=== PATIENT | male | born 1965 | race Caucasian/White ===

== ENCOUNTER 2019-05-07 08:29 | Outpatient (REF) | payer SELFPAY ==
[2019-05-07 20:37] LABS: Abs Immature Grans 0.01 k/cumm (0.0-0.09); Absolute Basophil Count 0.06 k/cumm (0.0-0.2); Absolute Lymphocyte Count 1.63 k/cumm (1.2-3.4); Absolute Monocyte Count 0.65 k/cumm (0.11-0.7); Absolute Neutrophil Count 3.03 k/cumm (1.2-6.7); Basophils % 1.1; Eosinophils % 5.3; HCT 38.2 % (40.0-50.0); Immature Grans % 0.2 %; Lymphocytes % 28.7; Mean Corpuscular Hemoglobin 30.9 pg (27.0-33.0); Mean Corpuscular Volume 90.7 fL (80-95); Mean Platelet Volume 10.1 fL (8.0-11.0); Monocytes % 11.4; Neutrophils % 53.3; Platelet Count 282 x1000/uL (130-400); RBC 4.21 m/cumm (4.50-6.00); RBC Distribution Width 12.9 % (11.8-14.1); White Blood Cell Count 5.68 k/cumm (4.4-10.8)
[2019-05-07 20:53] LABS: ALT 33 U/L (16-63); AST 32 U/L (15-37); Albumin 4.4 g/dL (3.4-5.0); Alkaline Phosphatase 61 U/L (46-116); Anion Gap 7.7 mmol/L (3-11); BUN 20 mg/dL (7-18); Bilirubin, Total 0.6 mg/dL (0.2-1.0); CO2 30.3 mmol/L (21.0-32.0); CREATININE 0.82 mg/dL (0.70-1.30); Calcium 9.1 mg/dL (8.5-10.1); Calculated LDL 180 mg/dL; Chloride 104 mmol/L (98-107); Cholesterol 253 mg/dL (<200); Glucose 88 mg/dL (74-106); HDL Cholesterol 61 mg/dL (40-60); Potassium 4.6 mmol/L (3.5-5.1); Sodium 142 mmol/L (136-145); TSH 3.55 uIU/mL (0.36-3.74); Total Protein 7.5 g/dL (6.4-8.2); Triglyceride 61 mg/dL (<150)
[2019-05-08 07:10] LABS: Vitamin D 25 Total 51.5 ng/ml (30-100)
== END 2019-05-07 08:49 ==
LOC: NCHCN 08:29
PROVIDERS: PCP Physician Assistant; Visit Provider Physician Assistant
DX: D64.9 Anemia, unspecified (principal); R68.89 Other general symptoms and signs; R53.83 Other fatigue; Z00.00 Encounter for general adult medical examination without abnormal findings
CPT/HCPCS: 80053; 80061; 82306; 84439; 84443; 85025

== ENCOUNTER 2020-07-21 11:11 | Outpatient (REF) | payer SELFPAY ==
[2020-07-21 16:04] LABS: Abs Immature Grans 0.01 10^3/uL (0.0-0.06); Absolute Basophil Count 0.09 10^3/uL (0.0-0.2); Absolute Eosinophil Count 0.21 10^3/uL (0.0-0.7); Absolute Lymphocyte Count 1.77 10^3/uL (1.2-3.4); Absolute Neutrophil Count 3.23 10^3/uL (1.2-6.7); Basophils % 1.5; Eosinophils % 3.6; HCT 37.7 % (40.0-50.0); HGB 12.9 g/dL (13.5-17.5); Immature Grans % 0.2; Lymphocytes % 29.9; MCH 30.6 pg (27.0-33.0); MCHC 34.2 % (32.0-36.0); MCV 89.5 fL (80-95); MPV 9.9 fL (8.0-11.0); Monocytes % 10.2; Neutrophils % 54.6; Nucleated RBC 0 %; Platelet Count 273 10^3/uL (130-400); RBC 4.21 10^6/uL (4.36-5.78); RDW 13.1 % (11.8-14.1); RDW-SD 43.2 fL; WBC 5.91 10^3/uL (4.4-10.8)
[2020-07-21 16:28] LABS: ALT 30 U/L (16-63); AST 28 U/L (15-37); Albumin 4.4 g/dL (3.4-5.0); Alkaline Phosphatase 106 U/L (46-116); BUN 23 mg/dL (7-18); Bilirubin, Total 0.5 mg/dL (0.2-1.0); CREATININE 0.9 mg/dL (0.70-1.30); Calcium 9.2 mg/dL (8.5-10.1); Chloride 102 mmol/L (98-107); FREE T4 0.91 ng/dL (0.76-1.46); Glucose 83 mg/dL (74-106); Potassium 4.1 mmol/L (3.5-5.1); Sodium 138 mmol/L (136-145); TSH 2.95 uIU/mL (0.36-3.74); Total Protein 7.7 g/dL (6.4-8.2)
[2020-07-21 17:17] LABS: Calculated LDL 175 mg/dL (<100); Cholesterol 243 mg/dL (<200); HDL Cholesterol 58 mg/dL (40-60); Triglyceride 52 mg/dL (<150)
[2020-07-22 18:48] LABS: Hemoglobin A1C 5.6 % (<5.7)
== END 2020-07-21 11:12 | disposition home or self-care (01) ==
LOC: NCHCN 11:11
PROVIDERS: PCP Physician Assistant; Visit Provider Physician Assistant
DX: E78.5 Hyperlipidemia, unspecified (principal); R53.83 Other fatigue; D64.9 Anemia, unspecified; R68.89 Other general symptoms and signs; Z13.1 Encounter for screening for diabetes mellitus
CPT/HCPCS: 80053; 80061; 83036; 84439; 84443; 85025